=== PATIENT | female | born 1955 | race Caucasian/White ===

== ENCOUNTER 2016-03-11 19:32 | Emergency (ER) | payer SELFPAY ==
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
[2016-03-11] MEDS ORDERED: DIPH,PERTUSS(ACELL),TET VAC/PF 0.5 ML DISP.SYRIN IM ONE (21:45)
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
== END 2016-03-11 23:32 | disposition home or self-care (01) ==
LOC: ED 19:32
DX: S92.421A Displaced fracture of distal phalanx of right great toe, initial encounter for closed fracture (principal); V87.7XXA Person injured in collision between other specified motor vehicles (traffic), initial encounter; Y93.9 Activity, unspecified; Y99.9 Unspecified external cause status
CPT/HCPCS: 70450; 73030; 73630; 90471; 90715; 99283; L3260

== ENCOUNTER 2016-04-20 14:36 | Outpatient (CLI) | payer OTHER ==
--- NOTE | 2016-04-20 20:44 | Diagnostic Imaging Report ---
CHANDLER PARSONS [facility] [address] [facility] [address] [address] Report Submission Date: Apr 20, 2016 4:05:24 PM SOLUTION ENGINEER Patient Study Name: JESUS PRINCE Date: Apr 20, 2016 3:02:49 PM SOLUTION ENGINEER Modality Type: US Gender: F Description: UNILAT LTD STDY EXT VEINS : 53 Institution: [facility] Physician: CHANDLER PARSONS Duplex sonography of the deep venous system of the right lower extremity with color Doppler analysis Clinical history: Pain and swelling of the right lower extremity There is soft tissue swelling without visible deep venous thrombosis, all veins are patent and normally compressed from the right inguinal region doubtful lower calf. Doppler signals and Doppler waves are obtained and appear to be normal . Impression: Edema without visible deep venous thrombosis Electronically signed on Apr 20, 2016 4:05:24 PM SOLUTION ENGINEER by: Chandler GANN
== END 2016-04-20 14:37 ==
LOC: RAD 14:36
PROVIDERS: ATTEND Family Medicine
DX: I82.409 Acute embolism and thrombosis of unspecified deep veins of unspecified lower extremity (principal)
CPT/HCPCS: 93971

== ENCOUNTER 2017-05-01 15:52 | Outpatient (CLI) | payer OTHER ==
[2017-05-01 17:41] LABS: APPEARANCE,URINE Clear (CLEAR); COLOR,URINE Yellow (YELLOW); OCCULT BLOOD,URINE Trace-intact (NEGATIVE); PH URINE 6.5 (5.0 - 8.0); UROBILINOGEN URINE 0.2 Eu (0.2-1.0)
[2017-05-01 17:43] LABS: eGFR (African) > 60; eGFR (Non-African) > 60
== END 2017-05-01 16:00 ==
LOC: LAB 15:52
PROVIDERS: ATTEND Family Medicine
DX: M25.50 Pain in unspecified joint (principal); I10 Essential (primary) hypertension; R30.0 Dysuria
CPT/HCPCS: 80053; 80061; 81002; 85651

== ENCOUNTER 2017-05-21 14:07 | Outpatient (CLI) | payer OTHER | END 2017-05-21 14:10 | LOC: POD 14:07 | PROVIDERS: ATTEND Podiatrist | DX: B35.1 Tinea unguium (principal); M79.674 Pain in right toe(s); M79.675 Pain in left toe(s) | CPT/HCPCS: 99213 ==

== ENCOUNTER 2018-09-10 16:22 | Outpatient (CLI) | payer OTHER ==
[2018-09-10 17:01] LABS: A1C 4.9 % (<5.7)
[2018-09-10 17:08] LABS: eGFR (Non-African) > 60
[2018-09-10 17:09] LABS: HDL 92 mg/dL (>40)
--- NOTE | 2018-09-11 05:40 | Diagnostic Imaging Report ---
VIOLETTA PARSONS [facility] [address] [facility] [address] [address] Report Submission Date: Sep 10, 2018 5:57:07 PM CDT Patient Study Name: JESUS PRINCE Date: Sep 10, 2018 4:35:53 PM CDT Modality Type: DX Gender: F Description: CHEST 2VIEW : 53 Institution: [facility] Physician: VIOLETTA PARSONS Chest, AP portable HISTORY Cough, congestion FINDINGS There is no infiltrate, effusion or pneumothorax. The heart is enlarged. There is mild pulmonary vascular congestion. IMPRESSION Cardiomegaly with congestion. Electronically signed on Sep 10, 2018 5:57:07 PM CDT by: Torrey GANN
== END 2018-09-10 16:24 ==
LOC: LAB 16:22
PROVIDERS: ATTEND Family Medicine
DX: R73.9 Hyperglycemia, unspecified (principal); I10 Essential (primary) hypertension
CPT/HCPCS: 36415; 71046; 80053; 80061; 83036; 86803

== ENCOUNTER 2018-10-01 16:29 | Emergency (ER) | payer OTHER ==
--- NOTE | 2018-10-01 17:08 | ED Physician Documentation ---
Lower Extremity Problem - HISTORIAN Historian: patient - HPI Stated Complaint: left leg wound Chief Complaint: Lower Extremity Problem Additional Information: Patient presents to ED with left lower leg wound x 1 week. Patient reports a long standing history of lymphedema to her lower leg with chronic wounds. Last week she noticed a wound on the back of her left lower leg. She states she was putting triple antibiotic ointment on it 3 times a day. Today she noticed maggots in the wound and went to Dr. Thompson's office. Dr. Thompson's office referred her to the ER. Location of Injury: L leg Onset: days ago (7) Timing: still present, worse Duration: constant Recent Injury: No Where: home Severity: moderate Quality: swelling Exacerbated By: nothing Relieved By: nothing Associated Symptoms: denies: chest pain, shortness of breath - ROS CONST: no problems MS/SKIN/LYMPH: none CVS/RESP: none GI/: none EYES/ENT: none NERUO/PSYCH: denies: headache - PAST HX Past History: other (lymphedema) PE Risk Factors: none Surgeries/Procedures: none Allergies/Adverse Reactions: Allergies Allergy/AdvReac Type Severity Reaction Status Date / Time Penicillins Allergy Intermediate Rash Verified 10/01/18 17:24 Home Medications: Ambulatory Orders Medication Instructions Recorded Aspirin 81 mg PO DAILY 12/08/12 Clindamycin HCl 300 mg PO Q6 #40 capsule 10/01/18 - SOCIAL HX Smoking History: non-smoker Alcohol Use: none Drug Use: none - FAMILY HX Family History: none - VITAL SIGNS Vital Signs: Vital Signs Temp Pulse Resp BP Pulse Ox 98.1 F 65 17 189/93 96 10/01/18 16:30 10/01/18 16:30 10/01/18 16:30 10/01/18 16:30 10/01/18 16:30 - REVIEWED ASSESSMENTS Nursing Assessment Reviewed: Yes Vitals Reviewed: Yes ED Results Lab/Radiology - Lab Results Lab Results: Lab Results 10/01/18 10/01/18 17:00 17:00 WBC 8.80 K/ul K/ul (4.00-12.00) RBC 4.92 M/ul M/ul (3.90-5.20) Hgb 14.4 g/dL g/dL (11.5-16.0) Hct 42.6 % % (34.5-46.5) MCV 87.0 fl fl (80.0-100.0) MCH 29.2 pg pg (28.0-34.0) MCHC 33.7 g/dL g/dL (30.0-36.0) RDW 14.6 % H % (11.3-14.3) Plt Count 235 K/mm3 K/mm3 (130-400) Neut % (Auto) 64.6 % % (39.0-79.0) Lymph % (Auto) 22.4 % % (16.0-50.0) Lasalle % (Auto) 8.4 % % (0.0-11.0) Eos % (Auto) 4.2 % % (0.0-6.8) Baso % (Auto) 0.4 % % (0.0-1.5) Neut # (Auto) 5.7 # k/uL # k/uL (1.4-7.7) Lymph # (Auto) 2.0 # k/uL # k/uL (0.6-4.0) Lasalle # (Auto) 0.7 # k/uL # k/uL (0.0-0.9) Eos # (Auto) 0.4 # k/uL # k/uL (0.0-0.6) Baso # (Auto) 0.0 # k/uL # k/uL (0.0-0.5) Sodium 141 mmol/L mmol/L (137-145) Potassium 4.0 mmol/L mmol/L (3.5-5.1) Chloride 104 mmol/L mmol/L (98-107) Carbon Dioxide 26 mmol/L mmol/L (22-30) Anion Gap 15.0 BUN 19 mg/dL H mg/dL (7-17) Creatinine 0.70 mg/dL mg/dL (0.52-1.04) Est GFR ( Amer) > 60 (60 - ) Est GFR (Non-Af Amer) > 60 (60 - ) Glucose 120 mg/dL H mg/dL (74-106) Calcium 10.6 mg/dL H mg/dL (8.4-10.2) Total Bilirubin 0.9 mg/dL mg/dL (0.2-1.3) AST 31 U/L U/L (15-46) ALT 21 U/L U/L (13-69) Alkaline Phosphatase 218 U/L H U/L (38-126) Total Protein 8.9 g/dL H g/dL (6.3-8.2) Albumin 4.8 g/dL g/dL (3.5-5.0) - Orders Orders: ED Orders Category Date Time Status Cleanse with NS and Chlorhexid 1T Care 10/01/18 17:[address] IV Lock 1T Care 10/01/18 17:10 Active BLOOD CULTURE Stat Lab 10/01/18 Ordered CBC/PLATELET/DIFF Routine Lab 10/01/18 17:00 Completed CMP Routine Lab 10/01/18 17:00 Completed WOUND CULTURE Stat Lab 10/01/18 Ordered Lower Extremity Problem - EXAM General Appearance: no distress Hips: bilateral hip: non-tender, normal inspection, normal range of motion, no evidence of injury Legs: bilateral: non-tender, normal inspection, normal range of motion, no evidence of injury Knees: bilateral: non-tender, normal inspection, normal range of motion, no evidence of injury Ankle: left: other (6cm wound posterior leg), bilateral: swelling Foot: bilateral foot: non-tender, normal inspection, normal range of motion, no evidence of injury, swelling Neuro/Tendon: normal sensation, normal motor functions EENT: JACOB RESPIRATORY: no resp distress, chest non-tender, breath sounds normal CVS: reg rate & rhythm, heart sounds normal JOINT: joints nml, Nml gait/weight bearing VASCULAR: no vascular compromise, pulses full/equal NEURO/PSYCH: oriented X3, CN's nml as tested, mood/affect nml SKIN: other (bilateral lower legs with small wounds in various stages of healing) BACK: normal inspection, no CVA tenderness Discharge Clincal Impression: Cellulitis, leg Qualifiers: Laterality: left Qualified Code(s): L03.116 - Cellulitis of left lower limb Prescriptions: Clindamycin HCl 300 mg PO Q6 #40 capsule Referrals: Chandler Thompson MD [Primary Care Provider] - 2 Days Additional Instructions: 1. Start Clindamycin today. 2. Wash legs twice daily with antibacterial soap. Keep wounds open and dry. 3. Follow up with Dr. Serrato as scheduled. They will call you with an appointment. 4. Follow up with Dr. Thompson within 1 week for wound re-check 5. Return to ER for new or worsening symptoms. Condition: Stable Disposition: 01 HOME, SELF-CARE Decision to Admit: NO Date of Decison to Admit: 10/01/18 Decision Time: 17:36
[2018-10-01 17:14] LABS: BASOPHILS % 0.4 % (0.0-1.5); NEUTROPHILS # 5.7 # k/uL (1.4-7.7)
[2018-10-01 17:22] LABS: eGFR (Non-African) > 60
== END 2018-10-01 17:44 | disposition home or self-care (01) ==
LOC: ED 16:29
DX: L03.116 Cellulitis of left lower limb (principal)
CPT/HCPCS: 80053; 85025; 87040; 99282; J7030; S1016

== ENCOUNTER 2018-10-16 13:33 | Outpatient (CLI) | payer OTHER ==
--- NOTE | 2018-10-23 08:58 | CONSULTATION REPORT ---
DATE OF VISIT: 10/16/2018 SUBJECTIVE: Nikole Grajeda is a 63-year-old female presenting to clinic today for a first time visit with me for previous bilateral lower extremity ulcers, mainly posterior lower legs. The patient has lymphedema and recently was washing her wounds and went to take off dressings one day and found maggots on the back of her legs. The patient tried to get into see Dr. Thompson and they could not see her that day, so they referred her to the ER. She went there and had things washed up real good and was given instructions regarding starting clindamycin and washing legs twice daily with antibacterial soap. The patient was to keep the wounds open and dry. She was to follow up with me, as well as Dr. Thompson and to return to the ER if any new or worsening symptoms. This happened on October 01, 2018. The patient is here for her first visit with me and denies being diabetic. She states she has had the lymphedema for several years. She is unable to give me an exact time frame. The patient has been trying to put some sort of dressing on the back of her leg, but it was soaked today when she came in. The patient states that she is willing to try and find some shorts or looser sweat pants for the next visit, so that we can try and do some aggressive four-layer wraps to really get the swelling more under control. She does not admit to any fever, chills, nausea, vomiting, shortness of breath or chest pain. We discussed with her, her temperature today being 100.1 and she states that she is feeling great and without any issues. OBJECTIVE: Vitals: Temperature 100.1 degrees Fahrenheit - discussed with the patient and she feels great. Heart rate 93, respiration rate 18, blood pressure 150/74. O2 saturation is 92% on room air. Vascular: 2+ DP pulses bilaterally, and unable to palpate the PT pulses due to lymphedema at the ankles. This was unable to be palpated bilaterally at the PT artery. The patient has capillary refill time to the toes of less than 3 seconds bilaterally. There is severe lymphedema noted, bilateral lower extremities, ankles and feet. Dermatologic: The patient has severe skin changes with elevated skin masses in several areas due to lymphedema and fluid accumulation. Some of these have ruptured and opened causing open wounds bilaterally. The posterior right lower leg, however, appears to have dried up with some stable eschars at this time. There are no open lesions on the right lower extremity. The left lower extremity, however, does have a very large elevated skin mass area with yellow slough and malodor. There is no erythema or warmth suggesting infection at this time. The left lower leg does not have any purulence noted. The wound appears to be fairly superficial, but is definitely present and is large, measuring approximately 14.0 x 9.0 cm. This has a lot of fibrous slough intermixed in the folds of the wound itself. There are no other open lesions or concerning areas bilateral lower extremities. Musculoskeletal: There was some pain with debridement of the posterior left leg wound. There are no other gross abnormalities noted. The patient has 5/5 muscle strength about the ankle and subtalar joint bilaterally upon exam today. The patient has somewhat normal ankle and subtalar joint range of motion, but perhaps slightly limited. Neurologic: Light touch sensation is intact to the toes, bilaterally. ASSESSMENT AND PLAN: 1. Lymphedema ulcers, left lower extremity (the right lower leg ulcers are dried up and have a stable eschar). 2. Lymphedema bilateral lower extremities, severe. PROCEDURE #1: Sharp debridement greater than 20 sq cm of the left lower extremity posterior lower leg ulcer was performed down to and including subcutaneous tissue. The site was rinsed with a copious amount of normal saline and dressings were applied today consisting of Opticell AG, ABD pad, Kerlix and a 4-inch Jourdan wrap. This was all performed on the left lower extremity. The patient tolerated the procedure well. It was a little bit sore for her with the debridement, but she did well. We discussed with the patient the very great importance of getting the swelling down in order to control these wounds and stop them from happening. We discussed the need to do four-layer compression wraps to try and get the swelling down and due to the wound and drainage to be seeing her likely three times a week between myself and nurses visits. The patient is unable to come next Saturday due to Day, so what we will do is have her change the dressing on Saturday and then Saturday with the dressings that we sent her home with today that are an equivalent to what we did on her today and then I will see her next week on Saturday. The patient knows that she needs to have looser fitting pants or shorts and that the plan will be to get her into surgical shoes and do some wound care and wrap it up and do four-layer compression wraps on both lower extremities. She knows she will be unable to get them wet and she will be looking for some alternative options for keeping the legs dry when showering. She is going to look into shower bags or Saran wrap with tape at the top and a garbage bag or things like that. She knows that she needs to hold the bottom of the garbage bag if she does that option, so that she is not standing on the garbage bag. We do not need her to slip. The patient has no further questions or concerns at this time. I am slightly worried about her willingness to comply and keep these dry and clean, but we will do our best with this as she definitely needs some good compression at this time. She does not want to do any Jourdan wraps on the right leg today and knows that we will plan on four-layer compression wraps bilaterally next week. Return to clinic in one week from yesterday, so she will be here on Saturday. At that time, we will try and set up Saturday and then Saturday and Saturday nursing visits, here in outpatient on Fridays and in the [facility] on Mondays. Bernardo Madera.P.M.(Dictated/not signed) /[employer] [id number] /mab MTDD
== END 2018-10-16 14:05 ==
LOC: POD 13:33
PROVIDERS: ATTEND Podiatrist Foot & Ankle Surgery
DX: I89.0 Lymphedema, not elsewhere classified (principal); L97.529 Non-pressure chronic ulcer of other part of left foot with unspecified severity
CPT/HCPCS: 11042; 11045; 99212

== ENCOUNTER 2018-11-11 14:08 | Outpatient (CLI) | payer OTHER ==
--- NOTE | 2018-11-14 16:20 | OP Clinic Progress Note ---
DATE OF VISIT: 11/11/2018 SUBJECTIVE: Nikole Grajeda is a 63-year-old female presenting to the clinic for follow up of bilateral lymphedema ulcers. The patient has not been into clinic for quite some time now despite several attempts to try and help her come into the clinic. The patient states that she is doing her own dressing changes at home. She admits that frequently she sees flies trying to get underneath her dressings into the wound and that she had maggots again this last week. She is unwilling to use any sort of Kerlix from us, but would rather use the rolls of gauze that she has as she states that they get on her legs better. She also states that she forgot to wear appropriate shorts in order to allow any sort of larger compressive dressing, so that will not be possible at this time. The patient does not admit to any fevers, chills, nausea, vomiting, shortness of breath or chest pain. She does admit that she has incontinence and therefore also a fear of using four layer wraps that she believes will make it more difficult to get to the bathroom on time as well as if she has any sort of incontinence issue will get them wet and cause problems that way. She does feel that she is having less drainage from the wounds and is here for continued follow up. She states that she does not want any sort of four layer wraps despite our discussion about that at her visit and would like to go forward with dressing changes according to the way that she wants them done. OBJECTIVE: Vitals: Temperature 98.6 degrees Fahrenheit, heart rate 96, respiration rate 18, blood pressure is high at 171/86. O2 saturation is 94% on room air. The patient understands that the blood pressure is too high and therefore she will need to keep a good eye on it and see her primary care doctor if it is continuing probably. Vascular: Slightly palpable DP and PT pulses, but difficult to palpate due to severe edema. Capillary refill time is less than 3 seconds to the toes bilaterally. There is severe edema and lymphedema noted in the bilateral lower extremities all the way down into the feet. Dermatologic: There is slight red discoloration and a very thin somewhat eschar noted just above the posterior left heel on top of one of the lymphedema rolls from pressure. This is not open nor is it draining at this time nor any warmth around it. The left posterior lower leg has a very large dystrophic tissue that is wet and has a lot of fibrous tissue and deep ridges within the tissue today. There were no maggots present, but there were some small flies that we noticed while debriding that were flying around the area. The wound site measures approximately 12 x 10.5 cm. There is very slight red irritation around the edges of the wound, however, there is no warmth or significant malodor noted or other signs of infection. The wound base was debrided to bleeding tissue. It should be noted that the dystrophic wound tissue is actually elevated above the rest of the skin layer as opposed to a crater type of wound. The right lower extremity anteriorly has a very small area that is approximately 1.0 x 1.0 cm in size that is also the similar type of lifted dystrophic tissue that is wet and draining serous fluid. This was also debrided today to bleeding intact base. This also is elevated above the rest of the skin level. The patient has overall dystrophic skin that is elevated and almost a hard bubbly appearance. There is no other erythema or malodor or signs of infection noted. Musculoskeletal: There is some pain with debridement. Otherwise, there were no other significant gross abnormalities noted bilaterally. Neurologic: Light touch sensation is diminished to the toes bilaterally. ASSESSMENT AND PLAN: 1. Lymphedema ulcers, bilateral lower extremities. 2. Lymphedema, bilateral lower extremities. PROCEDURE #1: Sharp debridement of the subcutaneous tissue greater than 20 sq cm with a curette was performed on the left posterior leg. Bleeding was controlled with pressure. It was rinsed and cleansed with copious amounts of normal saline. Opticell AG, 4 x 4 gauze and the patient's gauze roll was applied times three on the left lower leg. We were not able to do this beginning on the foot today, just on the lower leg. The patient cannot use any Jourdan wraps due to the tight nature of the pants/sweats that she brought today. The patient was sent home with four rolls of 4 inch Jourdan wrap and was encouraged to use two rolls on each leg when she gets home. The patient understands and will do this. She was also sent home with extra gauze and some extra Opticell AG to use at home. PROCEDURE #2: I do not believe I put this on the original documentation, but there is a sharp debridement also of the right lower extremity less than 20 sq cm with a curette at the anterior lower leg right ulcer. Bleeding was controlled with pressure. This was rinsed with normal saline and dressed with Opticell AG, 4 x 4s and the patient's gauze roll as well. The patient is to return to the clinic in one week for weekly visits on Wednesdays and we will continue local wound care here. She will do dressing changes at home in the meantime. I am having a very difficult time knowing how to treat this patient as she is unwilling to come regularly lately and that she is not allowing any sort of compression that we need to be doing. We will look into lymphedema compression and I will see if we can find a way to get that started for this patient. This is definitely something that would help her to have at home. We will work on this and discuss this more next week. Nikita MaderaP.M. (Dictated/not signed) /Accutype [id number] /mab MTDD
== END 2018-11-11 14:40 ==
LOC: POD 14:08
PROVIDERS: ATTEND Podiatrist Foot & Ankle Surgery
DX: I89.0 Lymphedema, not elsewhere classified (principal); L97.919 Non-pressure chronic ulcer of unspecified part of right lower leg with unspecified severity; L97.929 Non-pressure chronic ulcer of unspecified part of left lower leg with unspecified severity
CPT/HCPCS: A4554

== ENCOUNTER 2018-11-19 14:09 | Outpatient (CLI) | payer OTHER ==
--- NOTE | 2018-12-03 10:52 | OP Clinic Progress Note ---
DATE OF VISIT: 11/19/2018 SUBJECTIVE: Nikole Grajeda presented today for follow up of a bilateral lymphedema with left lower leg posterior lymphedema ulcer. The patient also had an ulcer on the anterior distal right lower leg last time I saw her last week and she has been doing dressing changes and presents today with a dressing just on the left leg. She states that she is cleaning it once if not twice a day with soap and water and is applying her own dressings with gauze and her own roll of gauze. She does not like using the rolls of Kerlix we have as she feels they fall off easily. She does not want any sort of compression wraps at this time. She does not admit to any fever, chills, nausea, vomiting, shortness of breath or chest pain. OBJECTIVE: Vitals: Temperature 97.0 degrees Fahrenheit, heart rate 74, respiration rate 18, blood pressure 158/103. O2 saturation is 96% on room air. The patient states she did not take her blood pressure medication yet today. Vascular: Palpable DP pulse, nonpalpable PT due to edema, left lower extremity. There is severe lymphedema noted bilateral lower extremities. Capillary refill time is less than 3 seconds to the toes bilaterally. Dermatologic: The right anterior lower leg ulcer that was present previously has healed and has dried. The left lower leg posterior ulcer is still quite large with some white fibrous tissue that was debrided today with a curette to a bleeding base. The skin/wound area is quite dystrophic in its appearance and hypertrophic as it sticks out above the regular skin. It is wet with a significant malodor. There is no purulence or erythema or warmth noted, however. There is none of that. The wound was not measured today, but it appears to be similar to last week. There are no other open lesions noted or concerning areas bilaterally. Musculoskeletal: There is some pain with debridement of the posterior leg ulcer. There are no other gross abnormalities noted. Neurologic: Light touch sensation is intact, but perhaps slightly diminished to the toes left foot. Again there is some pain to debridement of the left leg ulcer. ASSESSMENT AND PLAN: 1. Lymphedema ulcer, left lower extremity. 2. Right lower extremity lymphedema ulcer - healed. PROCEDURE #1: Sharp debridement of the left lower extremity ulcer greater than 20 sq cm was performed with a curette down to and including subcutaneous tissue. This was rinsed with a copious amount of normal saline, dried and dressings were applied consisting of Opticell Ag, 4x4 gauze and her roll of gauze. The patient does not allow us to do any sort of compression dressing on her right now. Return to clinic in one week for follow up. She is to continue daily dressing changes as we have described before. We will see if we can slowly get some improvement here. If we are not getting any improvement we will strongly encourage her again the importance of compression dressings. Bernardo Madera.P.M. (Dictated/not signed) /Accutype [id number] /mab MTDD
== END 2018-11-19 14:35 ==
LOC: POD 14:09
PROVIDERS: ATTEND Podiatrist Foot & Ankle Surgery
DX: I89.0 Lymphedema, not elsewhere classified (principal); L97.929 Non-pressure chronic ulcer of unspecified part of left lower leg with unspecified severity
CPT/HCPCS: 11042; 99212; A4554

== ENCOUNTER 2018-11-26 14:15 | Outpatient (CLI) | payer OTHER ==
--- NOTE | 2018-12-09 08:33 | OP Clinic Progress Note ---
DATE OF VISIT: 11/26/2018 SUBJECTIVE: Nikole presents today for follow up of a lymphedema ulcer to the posterior left lower extremity and lymphedema bilaterally. The patient denies any pain or struggle outside of finding maggots once or twice this week on the wound. She is concerned that she is doing extensive washings with gloves on and getting between the grooves and ridges and she is still seeing maggots occasionally. She admits having a window that is open in her home, that has a crack that lets flies come in sometimes. She does not admit to any fever, chills, nausea, vomiting, shortness of breath or chest pain. She does admit to some heel pain that happens on occasional days lately. She does not admit to any other concerns or wishes at this time. She does express that she is grateful for the concerted effort on our staff's part to help her. OBJECTIVE: Vitals: Temperature 97.6, heart rate 97%, respiration rate 18, blood pressure 189/96, O2 sat is 97% on room air. Vascular: Palpable DP and PT pulses, left foot. Capillary refill time less than 3 seconds to the toes left foot. There was significant severe lymphedema noted left and right feet and legs. Dermatologic: There is dystrophic changes of the skin where the raw tissue is exuding beyond the normal level of skin consistent with last week. There is mild red discoloration in the posterior heel area as well, but there is no warmth associated with it. It is blanchable as well. There is mild malodor noted. There is no warmth or erythema near the wound site. There is [id number] white and yellow tissue slough in the wound that was debrided today with a curette. That demonstrated some bleeding which is good. The patient does not have any other open lesions on the right leg, but she does have some stable eschars where they likely opened briefly and then healed up again. She has a history of a large wound on the right anterior lower leg which has healed and took a long time to heal wherever she had that done previously. Wound measurements today are 15.0 x 9.5 cm, left lower extremity posterior ulcer. Musculoskeletal: There is pain on palpation in the direct plantar heel area on the left heel. There is some pain with debridement of the left posterior lower leg ulcer. There are no other gross abnormalities noted except for significant lymphedema with multiple skin rolls noted. Neurologic: Light touch sensation is intact to the toes, left foot. ASSESSMENT AND PLAN: 1. Lymphedema ulcer, left lower extremity. 2. Lymphedema bilaterally, bilateral lower extremities. PROCEDURE #1: Sharp debridement with a curette greater than 20 sq cm to and including the subcutaneous tissue layer were performed today. This was rinsed with a copious amount of normal saline. This was dried then [place] and a gauze roll x 2 on the patient was applied today. She is to continue doing dressing changes and washing it daily. We discussed in depth the importance of compression and the patient states she does not want to do that yet with our four layer wraps and states that she occasionally puts an MEÑO wrap on which she thinks helps. She understands it will help, but she has concerns that limit her willingness to do a four layer wrap at this time. She says she would like to hold off a little right now if we can. We will see the patient in a return clinic visit in one week for continued wound care. We also will strive looking for a lymphedema pump option for the patient. Ronnie Serrato D.P.M.(Dictated/not signed) /Accut[employer] [id number].RTF /mab MTDD
== END 2018-11-26 14:35 ==
LOC: POD 14:15
PROVIDERS: ATTEND Podiatrist Foot & Ankle Surgery
DX: I87.2 Venous insufficiency (chronic) (peripheral) (principal); L97.529 Non-pressure chronic ulcer of other part of left foot with unspecified severity
CPT/HCPCS: 11042; 99212; A4554

== ENCOUNTER 2018-12-03 14:18 | Outpatient (CLI) | payer OTHER ==
--- NOTE | 2018-12-12 12:24 | OP Clinic Progress Note ---
DATE OF VISIT: 12/03/2018 SUBJECTIVE: Nikole presents today for followup of a lymphedema ulcer on the left lower extremity posteriorly. The patient denies any concerns over the last week and states that she is doing dressing changes after washing the wound thoroughly every day. She states she has not done that yet today, however, and therefore the dressing is approximately 24 hours old. She is concerned about the smell because of not changing it yet. She does not admit to any fevers, chills, nausea, vomiting, shortness of breath or chest pain. The patient states that she is having consistent pain in the left heel especially in the mornings. She is concerned about perhaps a possible heel spur. OBJECTIVE: Vitals: Temperature 97.3 degrees Fahrenheit, heart rate 100, respiration rate 18, blood pressure 203/106, which was rechecked a little bit later to be 155/100. O2 saturation is 96% on room air. Vascular: Palpable DP and PT pulses, left foot. Capillary refill time is less than 3 seconds to the toes of the left foot. There is severe lymphedema noted bilateral lower extremities. Dermatologic: There is still a large ulceration on the posterior aspect of the left lower leg. There is also skin dystrophic changes on bilateral lower extremities, but there are no open lesions on the right lower extremity. The wound is lifted off the skin surface due to dystrophic changes in the tissue and still has some fibrous and yellow slough tissue which was debrided today with a curette down to a bleeding granular base. There is no erythema around the wound. Distal to the wound, however, there is a slight amount of erythema on the posterior aspect of the heel that is not warm at all at this time and is not bothering the patient posteriorly. The wound is measuring today at 13.7 x 10.5 cm in size. There is no purulence noted. There is some malodor, which is consistent weekly. Musculoskeletal: There is no pain on palpation noted. There is some pain with debridement. There are no other gross abnormalities noted, left lower extremity. Neurologic: Light touch sensation is intact to the toes, left foot. There is some pain with debridement. ASSESSMENT AND PLAN: 1. Left lower extremity lymphedema ulcer. 2. Lymphedema bilateral lower extremities. PROCEDURE #1: Sharp debridement with a curette down to and including the subcutaneous tissue layer greater than 20 cm2 was performed today with a curette. This was rinsed with a copious amount of normal saline, dried and dressings were applied consisting of Opticell AG, 4x4 gauze and her Kerlix roll. I discussed with her the importance of a better compression than the Jourdan wraps she is using at home and she does not want to do 4-layer wraps at this time. We discussed that I was unable to get approval for lymphedema pumps, as the rep says that it is not covered under Medicaid. If her blood pressure continues to be high next week we will talk to her about again speaking with her primary care doctor soon. Return to clinic in one week for continued wound care. We will monitor for improvement in size and if it continues to improve we will continue present management, but otherwise we will more strongly encourage the need for compressive dressings. Otherwise the patient is to continue Jourdan wraps at home and we will see her in one week. We asked the patient to do some stretching exercises before getting out of bed and if this seems to help the heel pain we will consider some inserts for her shoes next visit if there may be a plantar fasciitis component. If that does not seem to help with some stretching exercises, we may consider x-rays and steroid injection depending. Nikita MaderaP.M. (Dictated/not signed) /Accutype [id number].RTF /mab MTDD
== END 2018-12-03 14:45 ==
LOC: POD 14:18
PROVIDERS: ATTEND Podiatrist Foot & Ankle Surgery
DX: I89.0 Lymphedema, not elsewhere classified (principal); L97.829 Non-pressure chronic ulcer of other part of left lower leg with unspecified severity
CPT/HCPCS: A4554

== ENCOUNTER 2018-12-10 14:13 | Outpatient (CLI) | payer OTHER ==
--- NOTE | 2018-12-16 07:18 | OP Clinic Progress Note ---
DATE OF VISIT: 12/10/2018 SUBJECTIVE: Nikole presents today for followup of lymphedema ulcer on the left lower extremity and bilateral lower extremity lymphedema. The patient denies any issues over the last week. She is cleaning the wound daily and using MEÑO wraps at home. She does not admit to any issues or fevers, chills, nausea, vomiting, shortness of breath or chest pain. OBJECTIVE: Vitals: Temperature 99.1 degrees Fahrenheit, heart rate 78, respiration rate 18, blood pressure 159/78. O2 saturation is 94% on room air. Vascular: Palpable DP and PT pulses bilaterally. Capillary refill time is less than 3 seconds to the toes bilaterally. There is significant lymphedema noted, bilateral lower extremities. Dermatologic: Right lower extremity with dystrophic changes in the skin, but the skin is closed with no open lesions or erythema noted right lower extremity. The left lower leg has an open ulcer still present on the posterior lower left leg. This wound is to subcutaneous tissue and is with dystrophic changes that actually extend beyond that of the normal skin as it has been previously. There is mild irritation noted distal to the wound from drainage, but there is no warmth or obvious erythema noted anywhere left lower extremity. There is very mild malodor, improved from last week. There is mild green and yellow slough in the back of the wound, which is debrided today to a bleeding intact base. Musculoskeletal: There is some pain with debridement in the distal aspect of the wound. There are no other gross abnormalities noted bilateral lower extremities. There is no obvious pain on palpation except for the debridement mentioned above. Neurologic: Light touch sensation is intact to the toes bilaterally. ASSESSMENT AND PLAN: 1. Bilateral lower extremity lymphedema. 2. Left leg lymphedema ulcer. PROCEDURE #1: Sharp debridement with a curette down to and including the subcutaneous tissue layer less than 20 square cm was performed today. The patient tolerated the procedure well. There was some bleeding noted. The site was rinsed with a copious amount of normal saline today. The site was then dried and dressed with Opticell Ag, 4 x 4 gauze, ABD pad and two rolls of the gauze that the patient brought in herself. The patient refuses any MEÑO wrap at this time and states that she will put it on at home once she is back in her shorts at home. She prefers to wear pants in public at this time. She has no other questions or concerns at this time. Return to clinic in one week. The patient was notified last week that we will be unable to do lymphedema pumps with her current insurance. Nikita MaderaPSpencerM. (Dictated/not signed) /Accutype [id number].RTF /mab MTDD
== END 2018-12-10 14:45 ==
LOC: POD 14:13
PROVIDERS: ATTEND Podiatrist Foot & Ankle Surgery
DX: I89.0 Lymphedema, not elsewhere classified (principal); L97.529 Non-pressure chronic ulcer of other part of left foot with unspecified severity
CPT/HCPCS: 11042; 99212; A4554

== ENCOUNTER 2018-12-24 14:12 | Outpatient (CLI) | payer OTHER ==
--- NOTE | 2018-12-29 14:16 | OP Clinic Progress Note ---
DATE OF VISIT: 12/24/2018 SUBJECTIVE: Nikole is a 63-year-old female presenting today to clinic for followup of left lower extremity lymphedema ulcer and bilateral lymphedema. The patient was not able to be seen last week and so it has now been two weeks since her last visit with us. She is doing well and does not admit to any issues at all and feels that her wound is improving. She has been cleaning it daily and applying gauze as well as antibiotic ointment around the edges of the wound and her 3 inch Kwan around the wound to cover the gauze. She does not admit to any other issues or fever, chills, nausea, vomiting, shortness of breath or chest pain. She is doing well today. OBJECTIVE: Vitals: Temperature 97.8, heart rate 90, respiration rate 16, blood pressure 147/97, O2 sat is 94% on room air. Vascular: Palpable DP and PT pulses bilaterally. Capillary refill time is less than 3 seconds to the toes bilaterally. There is significant lymphedema noted bilateral lower extremities. Dermatologic: The right lower leg posterior ulcer is still present, but greatly improved in size visibly. It is measuring today at 10.5 x 7.0 cm. It is still with some necrotic/yellow slough which was debrided today with a curette to a bleeding base to a clean wound site. It was rinsed with a copious amount of normal saline and dried. There is no erythema noted. There is still some malodor noted, but no erythema or warmth noted suggestive of infection. There is still slight red irritation on the skin distal to the wound, which is suggestive of irritation due to drainage as it is not warm nor any true signs of infection there. There are no other skin concerns and all other skin is dry on bilateral lower extremities. Musculoskeletal: There is mild pain with debridement of the left lower extremity posterior ulcer. There are no other gross abnormalities noted. Neurologic: Light touch sensation is intact to the toes bilaterally. ASSESSMENT AND PLAN: 1. Bilateral lower extremities lymphedema. 2. Lymphedema ulcer, left lower extremity. PROCEDURE #1: Sharp debridement of the left lower extremity lymphedema ulcer less than 20 sq cm was performed today down to and including the subcutaneous tissue layer with a curette. Slight bleeding was present. This was rinsed as well with a copious amount of normal saline and dried and dressings were applied consisting of Opticell AG, 4x4 gauze and her two rolls of 3 inch Kwan. This is to help with some compression. The patient is unwilling to allow us to put any sort of extra compression on it due to other issues. She does not have any other questions or concerns. She would like to do two weeks if possible as it did well this last two weeks. We will see her in two weeks for a return to clinic followup visit and wound care and then we will see her five days later on Saturday as that is the day that I can see her before I am out of town for the next week and a half to two weeks after that. The patient understands this and understands that we will see her in two weeks from now on Saturday and then five days later on the following Saturday, which is right before Thanks. She knows that she can also see me any sooner if needed in the next two weeks and to call if needed and she has my number with her. Ronnie Serrato D.P.M. /[employer]ut[employer] [id number] /mab MTDD
== END 2018-12-24 14:40 ==
LOC: POD 14:12
PROVIDERS: ATTEND Podiatrist Foot & Ankle Surgery
DX: I89.0 Lymphedema, not elsewhere classified (principal); L97.529 Non-pressure chronic ulcer of other part of left foot with unspecified severity
CPT/HCPCS: 11042; 99213

== ENCOUNTER 2019-01-07 14:11 | Outpatient (CLI) | payer OTHER ==
--- NOTE | 2019-01-10 22:07 | OP Clinic Progress Note ---
DATE OF VISIT: 01/07/2019 SUBJECTIVE: Nikole is a 63-year-old female presenting to clinic for bilateral lower extremity lymphedema as well as a lymphedema ulcer of the left lower extremity posteriorly. The patient presents stating that she is doing well and feels that things are improving and she has virtually no pain in the back of the lower left leg at this time. She is continuing to do daily dressing changes at home with her dressings. She does not admit to any fevers, chills, nausea, vomiting, shortness of breath or chest pain. She does admit that she did not take her blood pressure medication because she ran out and states that she is picking up her blood pressure medication on the way home today so that she can begin taking it. She understands that her blood pressure is very high today and states that she is still feeling just fine and feels completely okay today. OBJECTIVE: Vitals: Temperature 98.2 degrees Fahrenheit, heart rate 92, respiration rate 18, blood pressure 188/91. O2 saturation is 91% on room air. Vascular: Palpable DP and PT pulses, left foot. Capillary refill time is less than 3 seconds to the toes left foot. There is significant lymphedema noted, bilateral lower extremities. Dermatologic: The right lower leg does not have any evidence of open lesions at this time, but just some dystrophic skin. The left lower leg posterior ulcer is still present today and is measuring at 9.8 x 5.0 cm. This has greatly improved from last visit, which was two weeks ago that measured 10.5 x7.0 cm. There is definitely some improvement and the edges are beginning to dry out more and more. The patient does not have any erythema or purulence noted. She does have some white/yellow slough in the wound that was debrided today to a bleeding intact base. The skin is dystrophic sticking off the rest of the skin level, therefore depth is difficult to say. Musculoskeletal: There is no pain with debridement today of the left lower extremity posterior ulcer at the lower leg. There are no other gross abnormalities noted. It should be noted there is significant folds in the skin due to lymphedema with mild irritation in the posterior lower leg and heel that has been consistent and not evident or suggestive of infection at this time. Neurologic: Light touch sensation is intact to the toes, left foot. It should be noted that we did not look at the right foot, just the right lower leg today. ASSESSMENT AND PLAN: 1. Bilateral lower extremity lymphedema. 2. Lymphedema ulcer, left lower extremity. PROCEDURE #1: Sharp debridement of the left lower leg lymphedema ulcer less than 20 sq cm down to and including the subcutaneous tissue layer was performed with a curette. Bleeding was controlled with pressure. The site was rinsed with copious amount of normal saline. It was dried and then dressings were applied consisting of Opticell Aga, 4x4 gauze and a 3-inch Kwan that the patient brought with her. This was applied in two or three rolls. This was applied snugly as best we could as the patient does not allow us to use any other sort of compression. The patient does not admit to any other issues and she has no other questions and knows that we will see her next week for a follow-up visit on 01/13/2019. At that time we will also plan on setting her up with nursing visit while I am out of town. We will have her seen once while I am out of town the following week likely on Saturday. The patient is to continue daily dressing changes at home otherwise. She is to see the ER if there are any concerns while I am gone. Ronnie Serrato D.P.M./[employer] [id number] /mab MTDD
== END 2019-01-07 14:40 ==
LOC: POD 14:11
PROVIDERS: ATTEND Podiatrist Foot & Ankle Surgery
DX: I89.0 Lymphedema, not elsewhere classified (principal); L97.529 Non-pressure chronic ulcer of other part of left foot with unspecified severity
CPT/HCPCS: 11042; 99213; A4554